=== PATIENT | male | born 1960 | race Caucasian/White ===

== ENCOUNTER 2019-02-12 07:19 | Inpatient (IN) ==
--- NOTE | 2019-02-12 07:58 | PROVIDER DOCUMENTATION ---
HPI-Chest Pain - General Chief Complaint: Back Pain Stated Complaint: BACK PAIN Time Seen by Provider: 02/12/19 07:44 Source: patient Allergies/Adverse Reactions: Patient Allergies Allergy/AdvReac Type Severity Reaction Status Date / Time levofloxacin [From Levaquin] Allergy Intermediate ITCHING Verified 06/12/14 08:03 Home Medications: Home Medication List Medication Instructions Recorded Confirmed Last Taken Type Albuterol Sulfate [Proair Hfa] 90 gm IH PRN PRN 10/30/13 06/12/14 06/11/14 History 90 GM Alprazolam [Xanax] 1 mg PO BID 10/30/13 06/12/14 06/11/14 History 1 MG Amlodipine/Valsartan [Exforge 1 each PO DAILY 10/30/13 06/12/14 06/11/14 History 10/160 mg Tablet] 1 EACH Ascorbic Acid [Vitamin C] 1,000 mg PO DAILY 10/30/13 06/12/14 06/11/14 History 1000 MG Carisoprodol [Soma] 350 mg PO BID 10/30/13 06/12/14 06/11/14 History 350 MG Digoxin 0.25 mg PO DAILY 10/30/13 06/12/14 06/11/14 History 0.25 MG Fluticasone/Salmeterol [Advair 1 each IH DAILY 10/30/13 06/12/14 06/11/14 History 250-50 Diskus] 1 EACH Hydrochlorothiazide 25 mg PO DAILY 10/30/13 06/12/14 06/11/14 History 25 MG Hydrocodone/Acetaminophen [Lortab 1 each PO BID PRN 10/30/13 06/12/14 06/11/14 History 7.5-500 Tablet] 1 EACH Insulin Humulin 70/30 [Humulin 65 unit SUBQ BID 10/30/13 06/12/14 06/11/14 History 70/30] 65 UNIT Lovastatin [Mevacor] 20 mg PO HS 10/30/13 06/12/14 06/11/14 History 20 MG Metformin HCl 1,000 mg PO BID 10/30/13 06/12/14 06/11/14 History 1000 MG Metoprolol [Lopressor] 50 mg PO BID 10/30/13 06/12/14 06/11/14 History 50 MG Niacin E.r. [Niaspan] 500 mg PO DAILY 10/30/13 06/12/14 06/11/14 History 500 MG [place]-3 Fatty Acids [Fish Oil] 2,000 mg PO DAILY 10/30/13 06/12/14 06/11/14 History 2000 MG Omeprazole [Prilosec] 40 mg PO DAILY 10/30/13 06/12/14 06/11/14 History 40 MG Sildenafil Citrate [Viagra] 100 mg PO PRN PRN 10/30/13 06/12/14 Unknown History Venlafaxine [Effexor] 187.5 mg PO DAILY 10/30/13 06/12/14 06/11/14 History 187.5 MG Vitamin B Complex 1 each PO DAILY 10/30/13 06/12/14 10/29/13 11:00 History 1 CefDINIR [Omnicef] 300 mg PO BID #0 capsule 11/02/13 06/12/14 06/11/14 Rx 300 MG Ferrous Sulfate 325 mg PO BID #0 tablet 11/02/13 06/12/14 06/11/14 Rx 325 MG Sucralfate [Carafate] 1 gm PO 4XDAY #0 tablet 11/02/13 06/12/14 06/11/14 Rx 1 GM Warfarin Sodium [Coumadin] 7.5 mg PO DAILY #0 11/02/13 06/12/14 06/11/14 Rx 7.5 MG Gabapentin [Neurontin] 300 mg PO QHS #14 capsule 06/12/14 Unknown Rx Ketorolac [Toradol] 10 mg PO Q6H #20 tablet 06/12/14 Unknown Rx - History of Present Illness-CP Nature of Presenting Problem: 57 yo diabetic called an ambulance this morning for uncontrolled lright sciatica pain. but also has 5/10 chest tightness w/ assoc nausea, sob, diaphoresis. treated for chronic back , has pain clinic adn took norco x 1 this am. got fentanyl [address] hosp[address] 2 prior strokes but no prior cardiac hx. Review of Systems - Adult - REVIEW OF SYSTEMS - ADULT Constitutional: reports: no symptoms reported. denies: chills, fever Eyes: reports: no symptoms reported Ears, Nose, Mouth & Throat: reports: no symptoms reported Cardiovascular: reports: no symptoms reported Respiratory: reports: no symptoms reported Gastrointestinal: reports: no symptoms reported Genitourinary: reports: no symptoms reported Musculoskeletal: reports: no symptoms reported Integumentary: reports: no symptoms reported Neurological: reports: no symptoms reported Psychiatric: reports: no symptoms reported Endocrine: reports: no symptoms reported Hematologic/Lymphatic: reports: no symptoms reported Allergic/Immunologic: reports: no symptoms reported All Other Systems: Reviewed and Negative Past History - Adult - PAST MEDICAL HISTORY-ADULT Review of Records: reports: Nursing Assessment Review, Medications Reviewed, Social history reviewed & non-contributory. Major Childhood Illnesses: reports: denies history Cardiovascular: reports: HTN Respiratory: reports: COPD Gastrointestinal: reports: GERD, polyps Obstetrical/Gynecological: reports: denies history Genitourinary: reports: denies history Musculoskeletal: reports: chronic pain, intervertebral disc disease Neurological: reports: denies history Endocrine/Immune: reports: Diabetes Other Conditions: reports: denies history - PRIOR SURGERIES/PROCEDURES Surgical/Procedure History: reports: colonoscopy, orthopedic (extremity) Physical Exam-General - PHYSICAL EXAM-ADULT Initial Vital Signs Reviewed: Yes - CONSTITUTIONAL General Appearance: mild distress - EYES Eyes: PERRL/EOMI - HEAD, EARS, NOSE, MOUTH & THROAT HENMT: normocephalic/atraumatic, moist mucous membranes - NECK Neck: full range of motion, supple - RESPIRATORY Respiratory: chest non-tender, lungs clear, normal breath sounds - CARDIOVASCULAR Cardiovascular: normal peripheral pulses, regular rate, rhythm, no edema, no JVD , no murmur - GASTROINTESTINAL (ABDOMEN) Abdominal Exam: non tender, soft - MUSCULOSKELETAL Extremity: normal range of motion, non-tender, normal gait, other (displays stasis dermatitis and left groin tinea cruris, supine SLR + on right at 30 degrees). negative: swelling, tenderness - HEART Score HEART Score: History: Moderately Suspicious HEART Score: ECG: Normal HEART Score: Age: 45-65 Years HEART Score: Risk Factors for Atherosclerotic Disease: > or = 3 Risk Factors or History of Atherosclerotic Disease HEART Score: Troponin: < or = Normal Limit Total HEART Score:: 4 Progress - PLAN OF CARE/RESULTS Progress/Plan/Lab Results: Vital Signs - 8 hr 02/12/19 07:21 02/12/19 08:37 02/12/19 08:52 Temperature 98.2 F Pulse Rate 87 75 91 H Respiratory Rate 20 14 17 Blood Pressure 140/82 149/75 112/61 O2 Sat by Pulse Oximetry 93 L 92 L 93 L Laboratory Results - last 24 hr 02/12/19 02/12/19 02/12/19 07:55 07:55 07:55 WBC RBC Hgb Hct MCV MCH MCHC RDW Std Deviation Plt Count MPV Immature Gran % (Auto) Neut % (Auto) Lymph % (Auto) [place] % (Auto) Eos % (Auto) Baso % (Auto) Immature Gran # (Auto) Neut # (Auto) Lymph # (Auto) [place] # (Auto) Eos # (Auto) Baso # (Auto) PT INR PTT (Actin FS) D-Dimer, Quantitative 0.24 Sodium 138 Potassium 3.9 Chloride 102 Carbon Dioxide 25 Anion Gap 11 BUN 11 Creatinine 0.6 L Estimated GFR/1.73 m2 > 60 BUN/Creatinine Ratio 18 Glucose 215 H Calculated Osmolality 282 Calcium 8.4 L Creatine Kinase Troponin T < 0.010 Urine Source Urine Color Urine Clarity Urine pH Ur Specific [place] Urine Protein Urine Ketones Urine Blood Urine Nitrite Urine Bilirubin Urine Urobilinogen Urine Microscopic RBC Urine WBC Urine Microscopic WBC Ur Epithelial Cells Urine Crystals Urine Bacteria Urine Casts Urine Yeast Urine Glucose 02/12/19 02/12/19 02/12/19 07:55 07:55 07:55 WBC 10.12 RBC 5.67 Hgb 14.1 Hct 43.9 MCV 77.4 L MCH 24.9 L MCHC 32.1 L RDW Std Deviation 15.6 H Plt Count 201 MPV 10.1 Immature Gran % (Auto) 0.2 Neut % (Auto) 72.8 Lymph % (Auto) 16.8 L [place] % (Auto) 8.1 Eos % (Auto) 1.7 Baso % (Auto) 0.4 Immature Gran # (Auto) 0.02 Neut # (Auto) 7.37 H Lymph # (Auto) 1.70 [place] # (Auto) 0.82 H Eos # (Auto) 0.17 Baso # (Auto) 0.04 PT 27.4 H INR 2.41 PTT (Actin FS) 47.7 H D-Dimer, Quantitative Sodium Potassium Chloride Carbon Dioxide Anion Gap BUN Creatinine Estimated GFR/1.73 m2 BUN/Creatinine Ratio Glucose Calculated Osmolality Calcium Creatine Kinase 119 Troponin T Urine Source Urine Color Urine Clarity Urine pH Ur Specific [place] Urine Protein Urine Ketones Urine Blood Urine Nitrite Urine Bilirubin Urine Urobilinogen Urine Microscopic RBC Urine WBC Urine Microscopic WBC Ur Epithelial Cells Urine Crystals Urine Bacteria Urine Casts Urine Yeast Urine Glucose 02/12/19 09:00 WBC RBC Hgb Hct MCV MCH MCHC RDW Std Deviation Plt Count MPV Immature Gran % (Auto) Neut % (Auto) Lymph % (Auto) [place] % (Auto) Eos % (Auto) Baso % (Auto) Immature Gran # (Auto) Neut # (Auto) Lymph # (Auto) [place] # (Auto) Eos # (Auto) Baso # (Auto) PT INR PTT (Actin FS) D-Dimer, Quantitative Sodium Potassium Chloride Carbon Dioxide Anion Gap BUN Creatinine Estimated GFR/1.73 m2 BUN/Creatinine Ratio Glucose Calculated Osmolality Calcium Creatine Kinase Troponin T Urine Source CLEAN CATCH Urine Color YELLOW Urine Clarity SL. CLOUDY A Urine pH 6.5 Ur Specific [place] 1.015 Urine Protein 1+(30 mg/dL) A Urine Ketones 1+(Small) A Urine Blood NEGATIVE Urine Nitrite POSITIVE A Urine Bilirubin NEGATIVE Urine Urobilinogen 4 Urine Microscopic RBC <10 Urine WBC 1+ A Urine Microscopic WBC 10-20 A Ur Epithelial Cells <10 Urine Crystals NONE SEEN Urine Bacteria 4+ Urine Casts NONE SEEN Urine Yeast NONE SEEN Urine Glucose 3+(500 mg/dL) A Orders Category Date Time Status Cardiac Monitoring DIRECTED Care 02/12/19 07:44 Active Saline Loc NOW Care 02/12/19 07:44 Active CHEST-PORTABLE [RAD] Stat Exams 02/12/19 07:45 Completed BASIC METABOLIC PANEL [CHEM] Stat Lab 02/12/19 07:55 Completed CBC WITH ELECTRONIC DIFF [HEME] Stat Lab 02/12/19 07:55 Completed CK PROFILE [SP CHEM] Stat Lab 02/12/19 07:55 Completed D-DIMER [COAG] Stat Lab 02/12/19 07:55 Completed PROTIME WITH INR [COAG] Stat Lab 02/12/19 07:55 Completed PTT [COAG] Stat Lab 02/12/19 07:55 Completed TROPONIN T Stat Lab 02/12/19 07:[address] W/POSS RFLX CULT [URINALYSIS] Stat Lab 02/12/19 09:00 Completed URINE CULTURE [RM] Routine Lab 02/12/19 09:22 Ordered 0.9% Sodium Chloride Inj [Ns] 500 ml Med 02/12/19 10:14 Active IV 999 mls/hr CefTRIAXONE [Rocephin] 1 gm Med 02/12/19 10:14 Active 0.9% Sodium Chloride Inj [Ns] 50 ml IV NOW Ketorolac [Toradol] Med 02/12/19 10:14 Discontinued 30 mg IV NOW ONE Result Diagrams: 02/12/19 07:55 02/12/19 07:55 - REASSESSMENT Reassessment #1 Time Reassessed: 09:56 (has UTI no elev trop or d-dim) Status: unchanged (lots of low back and right sciatica pain, much worse than his baseline.) - XRAY 1 XRAY Study: Chest Impression: Normal, See EMR Report - CONSULTS/PCP/HOSPITALIST Notification #1 *Consult/PCP/Hospitalist*: DR VELAZQUEZ Time Discussed: 10:17 Consult Disposition: Admit Departure - Departure Date of Disposition Decision: 02/12/19 Time of Disposition Decision: 10:17 DIAGNOSIS: Chest pain at rest, Right-sided low back pain with sciatica, Lumbar disc disease with radiculopathy, UTI (urinary tract infection) Disposition: ADMITTED INPATIENT 09 Certified Medical Emergency: Emergent Condition: Stable Referrals and Follow-Ups: Marisabel Ross MD [Primary Care Provider] - Discharge Education: Steps to Quit Smoking, [id number] - Critical Care Note This patient required my direct & personal management of CC.: No Attestation - Physician/ DRU Attestation The physician spent face to face time with patient:: Yes Advanced Practice Provider documentation review:: Supervising physician onsite and consulted in the evaluation and care of this patient. The physician did have a face to face encounter with the patient.
[2019-02-12 08:14] LABS: BASO# 0.04 X1000 (0.0-0.2); BASO% 0.4 % (0.0-0.8); EOS# 0.17 X1000 (0.0-0.7); EOS% 1.7 % (0.0-10.0); HEMATOCRIT 43.9 % (42.0-52.0); HEMOGLOBIN 14.1 g/dL (14.0-18.0); IMM GRAN# 0.02 X1000 (0.0-0.04); IMM GRAN% 0.2 % (0.0-0.5); LYMPH% 16.8 % (20.5-51.1); MCH 24.9 PG (27-31); MCHC 32.1 g/dL (33-37); MCV 77.4 FL (81-99); MONO# 0.82 X1000 (0.11-0.59); MONO% 8.1 % (1.7-9.3); MPV 10.1 FL (7.4-10.4); NEUT# 7.37 X1000 (1.4-6.5); NEUT% 72.8 % (42.2-75.2); PLT 201 X1000 (130-400); RBC 5.67 XMIL (4.7-6.1); RDW 15.6 % (11.5-14.5); WBC 10.12 X1000 (4.8-10.8)
[2019-02-12 08:17] LABS: INR 2.41; PROTIME 27.4 Seconds (11.0-16.0)
[2019-02-12 08:18] LABS: PTT 47.7 Seconds (22.3-41.8)
--- NOTE | 2019-02-12 08:19 | Diag Imaging Result Doc PS360 ---
EXAM: CHEST-PORTABLE HISTORY: cp TECHNIQUE: Single view of the chest was performed portably. COMPARISON: 04/01/2015 FINDINGS: The cardiomediastinal silhouette is within normal limits. The pulmonary vasculature is not congested. No infiltrate, effusion, or pneumothorax is appreciated. IMPRESSION: No acute cardiopulmonary abnormality is identified. Electronically signed by Kaity Lopez 02/12/2019 8:17 AM
[2019-02-12 08:44] LABS: AGAP 11; BUN 11 mg/dL (8-22); CALCIUM 8.4 mg/dL (8.8-10.2); CHLORIDE 102 mmol/L (98-107); CREATININE 0.6 mg/dL (0.7-1.2); ESTIMATED GFR > 60; POTASSIUM 3.9 mmol/L (3.5-5.1); SODIUM 138 mmol/L (136-145); TCO2 25 mmol/L (25-35)
[2019-02-12 09:17] LABS: GLUCOSE 215 mg/dL (70-104)
[2019-02-12 09:19] LABS: BILIRUBIN URINE NEGATIVE (NEGATIVE); BLOOD URINE NEGATIVE (NEGATIVE); CLARITY SL. CLOUDY (CLEAR); COLOR YELLOW; KETONE URINE 1+(Small) mg/dL (NEGATIVE); LEUKOCYTES URINE 1+ (NEGATIVE); NITRITE URINE POSITIVE (NEGATIVE); PH URINE 6.5; PROTEIN URINE 1+(30 mg/dL) mg/dL (NEGATIVE); SP GRAVITY URINE 1.015; UROBILINOGEN URINE 4 mg/dL
[2019-02-12 09:22] LABS: URINE BACTERIA 4+ /HFP; URINE CAST NONE SEEN /LPF; URINE CRYSTAL NONE SEEN /HPF; URINE EPITHELIAL CELLS <10 /HPF (<10); URINE RBC <10 /HPF (<10); URINE SOURCE CLEAN CATCH; URINE YEAST NONE SEEN /HPF
[2019-02-12 09:53] LABS: COSMO 282
--- NOTE | 2019-02-12 09:57 | ED EKG INTERP ---
This chart was entered by Sandra Valero Scribe, acting as scribe for Cuba Jones MD. EKG Interpretation - EKG Time of EKG reading by physician:: 07:33 EKG Read and Signed by:: Cuba Jones EKG Interpretation (*Must complete 3 of following elements*): Normal Rate: 81 Rhythm: normal sinus rhythm [place]: normal QRS: normal OR Interval: normal ST Wave: normal Comments: normal ECG Attestation - Physician/ DRU Attestation The physician spent face to face time with patient:: Yes Advanced Practice Provider documentation review:: Supervising physician onsite and consulted in the evaluation and care of this patient. The physician did have a face to face encounter with the patient. This chart was documented by the indicated scribe, (Sandra Valero Scribe) and accurately reflects the services I performed and decisions made by me, Cuba Jones MD, as attested by the provider's signature.
[2019-02-12] MEDS ORDERED: NS 500 ML IV ONE (10:14)
[2019-02-12] MEDS ORDERED: TORADOL IV ONE (10:14)
[2019-02-12] MEDS ORDERED: ROCEPHIN 1 GM in NS 50 ML IV ONE (10:14)
[2019-02-12] MEDS ORDERED: NS 50 ML ONE (10:30)
[2019-02-12] MEDS ORDERED: NS 1,000 ML IV ONE (10:48)
[2019-02-12] MEDS ORDERED: DILAUDID IM PRN (10:48)
[2019-02-12] MEDS ORDERED: ZOFRAN IV PRN (10:48)
--- NOTE | 2019-02-12 11:16 | EKG Report ---
Test Performed on : 02/12/2019 07:33:35 AM Test Reason : ER Blood Pressure : / mmHG Vent. Rate : 081 BPM Atrial Rate : 081 BPM P-R Int : 176 ms QRS Dur : 104 ms QT Int : 374 ms P-R-T Axes : 048 034 018 degrees QTc Int : 434 ms Normal sinus rhythm. Normal ECG No previous ECGs available Unconfirmed Result
[2019-02-12 12:13] LABS: HEMOGLOBIN A1C 9.5 % (4.8-6.0)
--- NOTE | 2019-02-12 13:43 | HISTORY AND PHYSICAL ---
PRIMARY CARE PHYSICIAN: Marisabel Ross MD CHIEF COMPLAINT: back pain and left chest pain HISTORY OF PRESENT ILLNESS: This is a 58-year-old male that arrived by ambulance for complaints of pain in his right lower back and leg. He also complained of chest tightness, 5/10, that was located on the left side and started at 7 a.m., approximately lasting 30 minutes in duration. Associated symptoms were shortness of breath, nausea and diaphoresis. The patient states the pain in his back and leg and chest after the ambulance arrived and administered fentanyl. The patient was admitted to the ER and was found to have a negative troponin and did have positive urinalysis for nitrites, 1+ WBCs, 4+ bacteria. The patient was subsequently admitted into the hospital for observation of chest pain, low back pain and possible UTI. The patient's chest x-ray showed no acute abnormal processes. An EKG showed normal sinus rhythm, with the last echocardiogram being on 11/27/2018 with an ejection fraction of 60% to 65%. PAST MEDICAL HISTORY: 1. Hypertension. 2. COPD. 3. GERD. 4. Hyperlipidemia 5. Chronic pain related to disk disease. 6. Diabetes. PAST SURGICAL HISTORY: Positive for colonoscopy and positive orthopedic surgery. FAMILY HISTORY: Father: heart disease, brother of a heart attack, age unknown. SOCIAL HISTORY:positive 1 pack per day smoker. Denies any illicit drug use. Occasional alcohol use. lives with his and 3 kids. ALLERGIES: Levaquin which causes itching. HOME MEDICATIONS: [place] 7.5 mg 1 tab p.o. t.i.d., Norvasc 10 mg p.o. daily, digoxin 250 mcg p.o. daily, Cymbalta 60 mg p.o. daily, fenofibrate 145 mg p.o. daily, insulin Humalog 56 units subcutaneously before meals, Lopressor 50 mg p.o. daily, niacin 500 mg p.o. daily, Crestor 20 mg p.o. nightly at bedtime, trazodone 50 mg p.o. nightly at bedtime, Diovan 160 mg p.o. daily, Coumadin 5 mg p.o. nightly at bedtime, Tuojeo SoloSTAR subcutaneously daily, lisinopril 2.5 mg p.o. daily. REVIEW OF SYSTEMS: General: Denies any fever, chills or weight changes. HEENT: The patient has no complaints of headache, vision changes or dizziness at this time. Neck: Denies any neck pain or stiffness. Endocrine: Denies excessive thirst, urination or intolerance to cold at this time. Cardiovascular: Denies palpitations. States chest pain is currently resolved. Denies orthopnea, PND, dyspnea on exertion or any lower leg edema at this time. Respiratory: Denies cough, dyspnea or shortness of breath. GI: Denies nausea, vomiting, abdominal pain, diarrhea or constipation. Denies CVA tenderness. Denies musculoskeletal pain at this time other than chronic back pain that he states is improved with the fentanyl administered. Denies any skin rash. PHYSICAL EXAMINATION: VITAL SIGNS: Current vital signs are temperature 98.4, pulse 79, respiratory rate 20, blood pressure 148/80, saturation 97% on room air. GENERAL: The patient is a well-appearing, obese male. HEENT: He is normocephalic. PERRLA. NECK: No JVD noted at this time. CARDIOVASCULAR: No murmurs, gallops or rubs noted. Regular rate and rhythm. RESPIRATORY: Lung sounds are clear to bilateral auscultation. Nonlabored. GASTROINTESTINAL: Soft and palpable x4 quadrants. GENITOURINARY: No CVA tenderness noted. MUSCULOSKELETAL: 5/5 on all extremities. SKIN: Dry and intact. ASSESSMENT AND PLAN: 1. Diabetes. We will continue diabetic diet and obtain A1c and Accu-Cheks throughout the day per protocol. We will place on the low dose sliding scale. 2. Chest pain. We will continue cardiac monitoring and telemetry. We will also follow up with CK profile and troponins. 3. Urinary tract infection. We will continue fluid therapy of normal saline at 100 mL an hour. We will also continue Rocephin 1 g to be given q.24 hours. 4. Chronic back pain. We will continue with home medications, hydrocodone, [place] 7.5 mg t.i.d. 5. Hypertension. We will maintain home medications of metoprolol and Norvasc. further recommendations pending per clinical course and response to therapy. Dictated by BENITA Stiles for Piter Martini MD Addendum: Patient seen and examined by myself. Agree with BENITA note. It reflects my assessment and plan. Patient is being admitted to hospital for chest pain. Also we noticed patient was on atrial fibrillation but with rapid ventricular response so he was started on Cardizem drip and will restart home medications such as digoxin and metoprolol. Will send him to ICU for better monitoring. cc: Piter Martini MD MTDD
[2019-02-12] MEDS ORDERED: PRILOSEC PO SCH (13:45)
[2019-02-12] MEDS: NORCO-7.5 PO SCH ×3 (13:49→20:38)
[2019-02-12] MEDS: LOPRESSOR PO SCH ×2 (14:58→20:38)
[2019-02-12] MEDS: DIOVAN PO SCH (14:58)
[2019-02-12] MEDS ORDERED: NORVASC PO SCH (15:00)
[2019-02-12] MEDS ORDERED: LANOXIN PO SCH (15:00)
--- NOTE | 2019-02-12 15:12 | EKG Report ---
Test Performed on : 02/12/2019 2:51:39 PM Test Reason : Tachycardia Blood Pressure : / mmHG Vent. Rate : 135 BPM Atrial Rate : 144 BPM P-R Int : 000 ms QRS Dur : 096 ms QT Int : 300 ms P-R-T Axes : 000 132 -28 degrees QTc Int : 450 ms Atrial fibrillation. with rapid ventricular response. Right axis deviation Abnormal QRS-T angle, consider primary T wave abnormality Abnormal ECG When compared with ECG of 12-FEB-2019 07:33, (Unconfirmed) Atrial fibrillation. has replaced Sinus rhythm. Vent. rate has increased BY 54 BPM QRS axis shifted right Unconfirmed Result
[2019-02-12] MEDS: HUMALOG (PARKWAY) SUBQ SCH ×3 (16:22→20:49)
[2019-02-12] MEDS: CARDIZEM 125 MG/D5W 125 MG/125 ML IVPB IV SCH (16:25)
[2019-02-12] MEDS: ATIVAN IV PRN (18:50)
[2019-02-12] MEDS: NICODERM PATCH TD SCH (18:51)
[2019-02-12 20:32] LABS: BILIRUBIN URINE NEGATIVE (NEGATIVE); BLOOD URINE NEGATIVE (NEGATIVE); KETONE URINE TRACE mg/dL (NEGATIVE); LEUKOCYTES URINE TRACE (NEGATIVE); NITRITE URINE POSITIVE (NEGATIVE); PROTEIN URINE TRACE mg/dL (NEGATIVE); SP GRAVITY URINE 1.015; UROBILINOGEN URINE 4 mg/dL
[2019-02-12 20:33] LABS: CLARITY CLEAR (CLEAR); COLOR YELLOW
[2019-02-12] MEDS: COUMADIN PO SCH (20:38)
[2019-02-12] MEDS: CRESTOR PO SCH (20:38)
[2019-02-12] MEDS: SINGULAIR PO SCH (20:39)
[2019-02-12 20:57] LABS: URINE SOURCE CATH
[2019-02-12 20:58] LABS: URINE RBC <10 /HPF (<10); URINE WBC <10 /HPF (<10)
[2019-02-12 20:59] LABS: URINE BACTERIA NEGATIVE /HFP; URINE CAST NONE SEEN /LPF; URINE CRYSTAL NONE SEEN /HPF; URINE EPITHELIAL CELLS <10 /HPF (<10); URINE YEAST NONE SEEN /HPF
[2019-02-12] MEDS ORDERED: DESYREL PO SCH (21:00)
[2019-02-13 06:26] LABS: BASO# 0.04 X1000 (0.0-0.2); BASO% 0.3 % (0.0-0.8); EOS# 0.21 X1000 (0.0-0.7); EOS% 1.7 % (0.0-10.0); HEMATOCRIT 47.1 % (42.0-52.0); IMM GRAN# 0.03 X1000 (0.0-0.04); IMM GRAN% 0.2 % (0.0-0.5); LYMPH# 2.92 X1000 (1.2-3.4); LYMPH% 23.9 % (20.5-51.1); MCH 24.6 PG (27-31); MCHC 31.8 g/dL (33-37); MCV 77.2 FL (81-99); MONO# 1.09 X1000 (0.11-0.59); MONO% 8.9 % (1.7-9.3); NEUT# 7.92 X1000 (1.4-6.5); PLT 216 X1000 (130-400); RDW 16.3 % (11.5-14.5); WBC 12.21 X1000 (4.8-10.8)
[2019-02-13] MEDS: HUMALOG (PARKWAY) SUBQ SCH ×7 (06:27→20:04)
[2019-02-13 06:49] LABS: AGAP 10; BUN 10 mg/dL (8-22); CALCIUM 8.8 mg/dL (8.8-10.2); CHLORIDE 105 mmol/L (98-107); COSMO 281; CREATININE 0.6 mg/dL (0.7-1.2); ESTIMATED GFR > 60; GLUCOSE 119 mg/dL (70-104); POTASSIUM 4.2 mmol/L (3.5-5.1); SODIUM 141 mmol/L (136-145); TCO2 26 mmol/L (25-35)
[2019-02-13 07:16] LABS: INR 2.29; PROTIME 26.3 Seconds (11.0-16.0)
[2019-02-13] MEDS ORDERED: NON-FORMULARY MED (Fluticasone/Umeclidin/Vilanter [Trelegy Ellipta 100-62.5-25] 1 EA) inhalation SCH (07:30)
[2019-02-13] MEDS ORDERED: LOPRESSOR PO SCH (09:00)
[2019-02-13] MEDS: NORCO-7.5 PO SCH ×3 (09:00→20:00)
[2019-02-13] MEDS ORDERED: LISINOPRIL 2.5 MG PO SCH (09:00)
[2019-02-13] MEDS ORDERED: VALSARTAN PO SCH (09:00)
[2019-02-13] MEDS ORDERED: TRICOR PO SCH (09:00)
[2019-02-13] MEDS ORDERED: AMLODIPINE PO SCH (09:00)
[2019-02-13] MEDS: CARDIZEM 125 MG/D5W 125 MG/125 ML IVPB IV SCH ×2 (09:01→20:00)
[2019-02-13] MEDS: LANOXIN PO SCH (09:08)
[2019-02-13] MEDS: NICODERM PATCH TD SCH (09:08)
[2019-02-13] MEDS: LOPRESSOR PO SCH ×2 (09:08→20:01)
[2019-02-13] MEDS: CYMBALTA PO SCH (09:08)
[2019-02-13] MEDS: NIASPAN PO SCH (09:10)
[2019-02-13] MEDS: DIOVAN PO SCH (09:12)
--- NOTE | 2019-02-13 09:44 | PROGRESS NOTE ---
DATE: 02/13/2019 SUBJECTIVE: The patient has been anxious overnight. He received 1 dose of Ativan and since then patient has been feeling okay. He is using his CPAP machine this morning. No complaints at this time. OBJECTIVE: Temperature 97.7 degrees, heart rate 78, respiratory 15, and blood pressure 146/88. O2 saturation 93% on CPAP machine. General: This is a clinically ill looking and obese 58-year- old male lying in bed in no acute distress. Cardiovascular: S1-S2 heard. Irregularly irregular. No murmurs, gallops, or rubs. Respiratory: Clear bilaterally to auscultation. No work of breathing or using any accessory muscles or having work of breathing. Abdomen: Soft, a little bit distended. Nontender to palpation. Bowel sounds present. No organomegaly. Extremities: No clubbing, cyanosis, or edema. Peripheral pulses present in both legs. Neurological: Patient alert and oriented x3. Moves 4 extremities. LABORATORY DATA: White cell count 12.21, hemoglobin 15.0 hematocrit 47.1, and platelets 216,000 with normal BMP and urine culture negative. ASSESSMENT AND PLAN: 1. Atrial fibrillation with rapid ventricular response. Patient is on warfarin, and his INR is therapeutic. Because he did not take his medications for the last few days, his heart rate started to go up. At this point, we are going to restart those medications today. In this case, digoxin and metoprolol 50 mg p.o. b.i.d. Those were started yesterday, but patient refused to take them. He has been started on Cardizem drip. He is currently receiving 10 mg per hour IV. We will definitely adjust the doses of Cardizem depending upon how he responds to his home medications. 2. Chest pain. That is another reason why this patient was admitted to the hospital. At this point, we will try to perform Lexiscan stress test if this patient can do this test while on atrial fibrillation with RVR. 3. Urinary tract infection. Patient is on Rocephin. Urine culture 2 of them returned negative. At this point, we will continue with antibiotics while this patient is in the hospital. 4. Chronic back pain. We will continue with [place]. 5. Hypertension. The patient is on metoprolol, but because patient is on Cardizem drip the amlodipine has been stopped. 6. Disposition. We will continue to monitor this patient closely. cc: Piter Martini MD MTDD
[2019-02-13] MEDS: TOUJEO SOLOSTAR SUBQ SCH (11:06)
[2019-02-13] MEDS: ROCEPHIN 1 GM in NS 50 ML IV SCH (11:08)
[2019-02-13] MEDS: ATIVAN IV PRN ×2 (14:55→21:02)
[2019-02-13] MEDS: CARDIZEM PO SCH ×2 (14:55→20:00)
[2019-02-13] MEDS: CRESTOR PO SCH (20:00)
[2019-02-13] MEDS: COUMADIN PO SCH (20:01)
[2019-02-13] MEDS: SINGULAIR PO SCH (20:01)
[2019-02-13] MEDS: HALDOL IV PRN (23:18)
[2019-02-14] MEDS: ATIVAN IV PRN ×3 (01:09→20:13)
[2019-02-14] MEDS: CARDIZEM PO SCH ×2 (03:09→08:39)
[2019-02-14] MEDS: HUMALOG (PARKWAY) SUBQ SCH ×7 (06:21→20:13)
[2019-02-14 08:08] LABS: INR 1.97; PROTIME 23.4 Seconds (11.0-16.0)
[2019-02-14] MEDS: LOPRESSOR PO SCH ×2 (08:39→20:14)
[2019-02-14] MEDS: NIASPAN PO SCH (08:39)
[2019-02-14] MEDS: DIOVAN PO SCH (08:39)
[2019-02-14] MEDS: CYMBALTA PO SCH (08:39)
[2019-02-14] MEDS: LANOXIN PO SCH (08:39)
[2019-02-14] MEDS: NICODERM PATCH TD SCH (08:39)
[2019-02-14] MEDS: NORCO-7.5 PO SCH ×3 (08:40→20:14)
[2019-02-14] MEDS ORDERED: CARDIZEM CD PO SCH (10:00)
[2019-02-14] MEDS ORDERED: LEXISCAN ONE (11:03)
[2019-02-14] MEDS: ROCEPHIN 1 GM in NS 50 ML IV SCH (11:46)
[2019-02-14] MEDS: TOUJEO SOLOSTAR SUBQ SCH (11:47)
[2019-02-14] MEDS: NON-FORMULARY MED (Fluticasone/Umeclidin/Vilanter [Trelegy Ellipta 100-62.5-25] 1 EA) inhalation SCH (15:45)
[2019-02-14] MEDS ORDERED: VANCOMYCIN IV PER PHARMACY MISC SCH (17:00)
--- NOTE | 2019-02-14 17:27 | Diag Imaging Result Document ---
PROCEDURE NAME: MYOCARDIAL PERF SCAN, STR/REST - 02/14/2019 INDICATION: A 55-year-old male with chest pain and atrial fibrillation. DESCRIPTION: The patient came in to the nuclear lab and received rest injection of technetium 99 sestamibi 15.2 mCi. Multiple tomographic views of the cardiac structures were obtained at rest. Subsequently the patient underwent a Lexiscan protocol, and 0.4 mg of Lexiscan was infused. At peak infusion he was injected with technetium 99 sestamibi 47.1 mCi. Multiple tomographic views of the cardiac structures were obtained following completion of the protocol. SUMMARY OF THE ELECTROCARDIOGRAPHIC PORTION OF THE STUDY: Resting ECG shows atrial fibrillation, rate of 105 beats per minute. Resting blood pressure is 127/74. Resting ECG shows atrial fibrillation without any ischemic changes. During the protocol, the heart rate increased to a maximum of 133 beats per minute. Blood pressure dropped to 98/57. The patient reported no chest pain, shortness of breath or palpitations. He remained in atrial fibrillation with rapid response. Occasional PVCs were noted. Following the completion of the test, his heart rate and blood pressure returned back to baseline. In summary, electrocardiographic response to infusion of Lexiscan is unremarkable. SUMMARY OF THE MYOCARDIAL PERFUSION PORTION OF THE STUDY: Post-stress tomographic views of the left ventricle showed a very trivial basal inferior wall defect. Rest images showed the defect is fixed. The polar plots revealed the same. There is essentially normal myocardial perfusion with a trivial basal inferior fixed defect, probably related to attenuation artifact. Gated SPECT shows a preserved ejection fraction, estimated at 53%, with normal ventricular volumes and no wall motion abnormality. The lung/heart ratio is normal at 0.38. The TID in this case is 1.21; however, the accuracy of this measurement may be limited by the arrhythmia and also low counts in the resting study. SUMMARY: This study shows: 1. Abnormal resting ECG with an unremarkable response to infusion of Lexiscan. 2. Probably normal post-stress myocardial perfusion scan. 3. There is no scintigraphic evidence of pharmacologically induced myocardial ischemia utilizing a Lexiscan protocol. 4. A fixed basal inferior defect noted on rest and stress images is consistent with diaphragmatic attenuation artifact. The patient is obese with a weight of 293 pounds. 5. Preserved left ventricular systolic function, ejection fraction of 53% with normal ventricular volumes. No wall motion abnormality. 6. The study probably represents a low risk for ischemic events. Clinical correlation recommended. cc: MD Piter Robertson MD MTDD
--- NOTE | 2019-02-14 17:32 | PROGRESS NOTE ---
DATE: 02/14/2019 SUBJECTIVE: Patient reports feeling fine. He had been nauseous last night as well. He received 1 dose of Haldol IV and since then he is feeling better. OBJECTIVE: Vital Signs: Temperature 97.6 degrees, heart rate 98, respiratory rate 11, blood pressure 124/88, O2 saturation 95% on room air. General examination: This is a chronically ill- appearing, 58-year-old male, lying in bed, in no acute distress. Cardiovascular: S1, S2 heard. Irregularly irregular. No murmurs, gallops, or rubs noted. He is not tachycardic. Respiratory: Clear bilaterally to auscultation. No work of breathing or using accessory muscles. Abdomen: Soft. Nontender to palpation. Bowel sounds present. No organomegaly. Extremities: No clubbing, cyanosis, or edema. Peripheral pulses present in both legs. Neurological: Patient is alert and oriented x3. Moves 4 extremities. LABORATORY DATA: Reviewed. ASSESSMENT AND PLAN: 1. Atrial fibrillation with rapid ventricular response. Now this patient's heart rate is well controlled. He was requiring 20 mg of diltiazem q.6 hours that we are going to change to CD 120 mg p.o. daily. He continues to be on warfarin, that is therapeutic. He is also on digoxin, metoprolol 50 mg p.o. twice daily. At this point, that condition is stable. We will continue with the same medication. 2. Chest pain. Patient went to have a Lexiscan stress test today. The report is still pending. I think this chest pain has been triggered by this atrial fibrillation. Will wait for the results of this exam. 3. Urinary tract infection. Patient is on Rocephin but the urine culture returned positive for gram-positive cocci so we will add vancomycin while we wait for the final results of that exam. 4. Chronic back pain. We will continue with [place]. 5. Hypertension. Blood pressure is under control. Will continue with the same management. 6. Disposition. We will continue to monitor this patient closely. cc: Piter Martini MD
[2019-02-14] MEDS: VANCOMYCIN 2,000 MG in NS 500 ML IV SCH (18:01)
[2019-02-14] MEDS: CRESTOR PO SCH (20:14)
[2019-02-14] MEDS: SINGULAIR PO SCH (20:14)
[2019-02-14] MEDS: COUMADIN PO SCH (20:14)
[2019-02-14] MEDS: HALDOL IV PRN (23:08)
[2019-02-15] MEDS: VANCOMYCIN 2,000 MG in NS 500 ML IV SCH (06:09)
[2019-02-15] MEDS: HUMALOG (PARKWAY) SUBQ SCH ×4 (06:09→12:49)
[2019-02-15 06:23] LABS: BASO# 0.05 X1000 (0.0-0.2); BASO% 0.5 % (0.0-0.8); EOS# 0.15 X1000 (0.0-0.7); EOS% 1.6 % (0.0-10.0); HEMATOCRIT 48.1 % (42.0-52.0); HEMOGLOBIN 15.5 g/dL (14.0-18.0); IMM GRAN# 0.02 X1000 (0.0-0.04); IMM GRAN% 0.2 % (0.0-0.5); LYMPH# 2.92 X1000 (1.2-3.4); LYMPH% 30.4 % (20.5-51.1); MCH 24.8 PG (27-31); MCHC 32.2 g/dL (33-37); MONO# 0.96 X1000 (0.11-0.59); MPV 10.5 FL (7.4-10.4); NEUT# 5.52 X1000 (1.4-6.5); NEUT% 57.3 % (42.2-75.2); PLT 218 X1000 (130-400); RBC 6.25 XMIL (4.7-6.1); RDW 16.9 % (11.5-14.5); WBC 9.62 X1000 (4.8-10.8)
[2019-02-15 06:47] LABS: AGAP 14; BUN 8 mg/dL (8-22); CALCIUM 8.6 mg/dL (8.8-10.2); CHLORIDE 102 mmol/L (98-107); COSMO 271; CREATININE 0.6 mg/dL (0.7-1.2); ESTIMATED GFR > 60; GLUCOSE 149 mg/dL (70-104); POTASSIUM 4.3 mmol/L (3.5-5.1); SODIUM 135 mmol/L (136-145); TCO2 19 mmol/L (25-35)
[2019-02-15] MEDS: NON-FORMULARY MED (Fluticasone/Umeclidin/Vilanter [Trelegy Ellipta 100-62.5-25] 1 EA) inhalation SCH (08:20)
[2019-02-15] MEDS ORDERED: CARDIZEM CD PO SCH (09:00)
[2019-02-15] MEDS: ROCEPHIN 1 GM in NS 50 ML IV SCH (09:21)
[2019-02-15] MEDS: DIOVAN PO SCH (09:21)
[2019-02-15] MEDS: NIASPAN PO SCH (09:21)
[2019-02-15] MEDS: LOPRESSOR PO SCH (09:21)
[2019-02-15] MEDS: CYMBALTA PO SCH (09:21)
[2019-02-15] MEDS: NICODERM PATCH TD SCH (09:22)
[2019-02-15] MEDS: LANOXIN PO SCH (09:22)
[2019-02-15] MEDS: NORCO-7.5 PO SCH (09:22)
[2019-02-15] MEDS: TOUJEO SOLOSTAR SUBQ SCH (09:23)
--- NOTE | 2019-02-15 11:41 | DISCHARGE SUMMARY ---
ADMISSION DATE: 02/13/2019 DISCHARGE DATE: 02/15/2019 DISCHARGE DIAGNOSES: 1. Atrial fibrillation with rapid ventricular response, controlled. 2. Chest pain, resolved. 3. Diabetes mellitus type 2. 4. Urinary tract infection, resolved. 5. Chronic back pain. 6. Hypertension, under control. CONSULTATIONS: None. PROCEDURES: X-ray at admission showed no acute cardiopulmonary abnormality. Myocardial perfusion scan nuclear medicine showed ejection fraction 53%. No scintigraphic evidence of pharmacologically-induced myocardial ischemia using Lexiscan protocol. Preserved left ventricular systolic function. The study probably representing a low risk for ischemic events. HOSPITAL COURSE: This is a 58-year-old male who was brought to the emergency department by ambulance because of severe right lower back and leg. He also was complaining of chest tightness as well. Considering his history of hypertension and diabetes, he was admitted to the hospital for chest pain workup. A few hours after his atrial fibrillation, his heart rate started going up. We needed to place him on Cardizem drip and we restarted home medications; in this case, digoxin and metoprolol. Next day his heart rate has been better controlled. He was off of the drip, so he was able to do the Lexiscan stress test with results as above. Considering that his heart rate is well controlled on his Lexiscan test that shows low probability for ischemia, the patient is going to be discharged in stable condition. In his hospitalization we needed to star Cardizem CD on this patient, so he is going to be prescribed that medication. Regarding COPD, he was having breathing treatments as needed. For chronic pain, we will continue with home medications. For diabetes, we were using sliding scale insulin as well. So at this point the patient is stable, and he is going to be discharged in stable condition. DISCHARGE PHYSICAL EXAMINATION: vital signs: Temperature 97.9 degrees, heart rate 74, respiratory rate 13, blood pressure 128/81, and O2 saturation 94% on room air. General: This is a chronically ill-appearing and morbidly obese, 58-year-old, male lying in bed in no acute distress. Cardiovascular: S1, S2 heard. No murmurs, gallops, or rubs. Regular rate and rhythm. Respiratory: Clear bilaterally to auscultation. No work of breathing or using accessory muscles. Abdomen: Soft. Nontender to palpation. Bowel sounds present. No organomegaly. Extremities: No clubbing, cyanosis, or edema. Peripheral pulses present in both legs. Neurological: The patient alert and oriented x3. Moves 4 extremities. DISCHARGE DISPOSITION: Home to self care. Follow up with his primary care physician in a week. LIST OF MEDICATIONS: 1. Cardizem CD 180 mg 1 tablet p.o. daily. 2. Digoxin 0.25 mg p.o. daily. 3. Duloxetine 120 mg p.o. daily. 4. Doyle 7.5 one tablet p.o. 3 times per day as needed for pain. 5. Toujeo 120 units subcutaneous daily. 6. Singular 10 mg 1 tablet p.o. daily. 7. Niacin ER 500 mg 1 tablet p.o. at bedtime. 8. Crestor 20 mg 1 tablet p.o. at bedtime. 9. Warfarin 7.5 mg 1 tablet p.o. at bedtime. 10. Trelegy Ellipta 1 inhalation daily. 11. Omeprazole 40 mg p.o. daily. 12. Exforge 10/160 mg 1 tablet p.o. daily. 13. Metoprolol 50 mg 1 tablet p.o. b.i.d. TIME DISCHARGING THIS PATIENT: 35 minutes. cc: Piter Martini MD
[2019-02-15 13:36] VITALS: BP 129/95
== END 2019-02-15 13:15 | disposition home or self-care (01) | DRG 309 ==
LOC: SUPCPDRO → P.MEDSURG 07:19 → P.ED 07:19 → P.ICU 15:46
PROVIDERS: ATTEND Internal Medicine
CPT/HCPCS: 36415; 71010; 71045; 78452; 80048; 81001; 82550; 82948; 83036; 84484; 85025; 85379; 85610; 85730; 87077; 87088; 87186; 93005; 93017; 94640; 94761; 96365; 96375; 99285; A9270; A9500; J0696; J1630; J1815; J1885; J2060; J2785; J3370; J7030; J7040; XXXXX